=== PATIENT | male | born 1980 | race Caucasian/White ===

== ENCOUNTER 2020-10-06 15:10 | Emergency (ER) | payer OTHER ==
[2020-10-06] MEDS ORDERED: Ondansetron 4 MG/2 ML SDV IVPUSH ONE (15:15)
[2020-10-06] MEDS ORDERED: Sodium Chloride 0.9% 1,000 ML IV SCH (15:15)
[2020-10-06] MEDS ORDERED: Ketorolac 30 MG/ML SDV IVPUSH ONE (15:15)
--- NOTE | 2020-10-06 15:19 | EDM.PDOC ---
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 she reports that pt had a suicide attempt 2008, that he has gone to alc rehab in past but that was unable as it did not address his psych issues pt has dx of anxiety and depression states pt has not had alc since December that she is aware of pt states he lives with his and children and nephew states pt has difficulty handling stressful situations pt tells me that he "has 2 choices" but won't elaborate on those choices, denies being suicidal, states he is embarrassed, that his 2 choices are to drink or not to drink pt will not say why he was drinking today, says he does not know reports that he drinks alcohol - Related Data Allergies Allergy/AdvReac Type Severity Reaction Status Date / Time No Known Allergies Allergy Verified 10/06/20 15:54 Home Meds: Home Meds FLUoxetine HCl [Fluoxetine HCl] 40 mg PO BID 10/06/20 [History] busPIRone [Buspar] 7.5 mg PO DAILY 10/06/20 [History] ED ROS GENERAL - Review of Systems Review Of Systems: See Below Constitutional: Reports: No Symptoms HEENT: Reports: No Symptoms Respiratory: Reports: No Symptoms Cardiovascular: Reports: No Symptoms Endocrine: Reports: No Symptoms GI/Abdominal: Reports: No Symptoms : Reports: No Symptoms Musculoskeletal: Reports: No Symptoms Skin: Reports: No Symptoms Neurological: Reports: No Symptoms Psychiatric: Reports: Other (acute alc intox). Denies: Homicidal Ideation, Suicidal Ideation Hematologic/Lymphatic: Reports: No Symptoms Immunologic: Reports: No Symptoms ED EXAM, GENERAL - Physical Exam Exam: See Below Exam Limited By: No Limitations General Appearance: Alert, WD/WN, Other (small amount emesis on left label of his jacket, not holding his head erect) Ears: Normal External Exam, Hearing Grossly Normal Nose: Normal Inspection Throat/Mouth: Normal Inspection Head: Atraumatic Neck: Normal Inspection. No: Lymphadenopathy (R), Lymphadenopathy (L) Respiratory/Chest: No Respiratory Distress, Lungs Clear, Normal Breath Sounds, No Accessory Muscle Use, Chest Non-Tender Cardiovascular: Regular Rate, Rhythm, No Edema, No Gallop, No JVD, No Murmur, No Rub GI/Abdominal: Soft, Non-Tender, No Distention Back Exam: Normal Inspection, Full Range of Motion, NT Extremities: Normal Inspection, Normal Range of Motion, Non-Tender, No Pedal Edema Neurological: CN II-XII Intact, No Motor/Sensory Deficits Skin Exam: Warm Lymphatic: No Adenopathy Course - Vital Signs Last Recorded V/S: Last Vital Signs Temp 36.3 C 10/06/20 15:10 Pulse 88 10/06/20 15:10 Resp 20 10/06/20 15:10 BP 116/61 10/06/20 15:10 Pulse Ox 99 10/06/20 15:10 - Orders/Labs/Meds Orders: Active Orders 24 hr Category Date Time Status DRUG SCREEN, URINE ALERE [URCHEM] Stat Lab 10/06/20 15:15 Ordered UA W/MICROSCOPIC [URIN] Stat Lab 10/06/20 15:15 Ordered Sodium Chloride 0.9% [Normal Saline] 1,000 ml Med 10/06/20 15:15 Active IV ASDIRECTED Medication Orders Sodium Chloride (Normal Saline) 1,000 mls @ 999 mls/hr IV ASDIRECTED NILAM Last Admin: 10/06/20 15:21 Dose: 999 mls/hr Documented by: LESIA Labs: Laboratory Tests 10/06/20 10/06/20 10/06/20 Range/Units 15:18 15:18 15:18 WBC 8.2 (3.2-10.1) x10-3/uL RBC 5.22 (3.90-5.90) x10(6)uL Hgb 15.0 (12.9-17.7) g/dL Hct 44.5 (38.3-50.1) % MCV 85.4 (80.8-98.7) fL MCH 28.8 (27.0-33.3) pg MCHC 33.7 (28.7-35.3) g/dL RDW 14.5 (12.4-15.0) % Plt Count 366 (117-477) x10(3)uL MPV 7.9 (6.7-11.0) fL Neut % (Auto) 57.4 (40.3-71.8) % Lymph % (Auto) 32.8 (15.8-45.3) % [place] % (Auto) 8.2 (5.5-15.2) % Eos % (Auto) 0.7 (0.1-6.8) % Baso % (Auto) 0.9 (0.3-3.8) % Neut # (Auto) 4.7 (1.7-6.9) x10-3/uL Lymph # (Auto) 2.7 (0.5-4.5) x10-3/uL [place] # (Auto) 0.7 (0.0-1.2) x10-3/uL Eos # (Auto) 0.1 (0.0-0.6) x10-3/uL Baso # (Auto) 0.1 (0.0-0.3) x10-3/uL Sodium 142 (135-145) mmol/L Potassium 3.2 L (3.5-5.3) mmol/L Chloride 104 (100-110) mmol/L Carbon Dioxide 20 L (21-32) mmol/L BUN 14 (7-18) mg/dL Creatinine 1.2 (0.70-1.30) mg/dL Est Cr Clr Drug Dosing TNP Estimated GFR (MDRD) > 60 (>60) BUN/Creatinine Ratio 11.7 (9-20) Glucose 122 H (80-116) mg/dL Calcium 9.1 (8.6-10.2) mg/dL Total Bilirubin 1.2 (0.1-1.3) mg/dL AST 22 (5-25) IU/L ALT 33 (12-36) U/L Alkaline Phosphatase 79 (56-112) IU/L Total Protein 6.9 (6.0-8.0) g/dL Albumin 4.3 (3.5-5.2) g/dL Globulin 2.6 g/dL Albumin/Globulin Ratio 1.7 Ethyl Alcohol 0.21 H* (<0.03) % Meds: Medications Generic Name Dose Route Start Last Admin Trade Name Freq PRN Reason Stop Dose Admin Sodium Chloride 1,000 mls @ 999 mls/hr 10/06/20 15:15 10/06/20 15:21 Normal Saline IV 999 mls/hr ASDIRECTED NILAM Administration Discontinued Medications Generic Name Dose Route Start Last Admin Trade Name Sarbjit PRN Reason Stop Dose Admin Ketorolac Tromethamine 30 mg 10/06/20 15:15 10/06/20 15:22 Toradol IVPUSH 10/06/20 15:16 30 mg ONETIME ONE Administration Ondansetron HCl 4 mg 10/06/20 15:15 10/06/20 15:22 Zofran IVPUSH 10/06/20 15:16 4 mg ONETIME ONE Administration - Re-Assessments/Exams Free Text/Narrative Re-Assessment/Exam: 10/06/20 18:49 here, at bedside, says they live near [facility], that pt went to [place] in February when he had his last drinking binge, that he did not think he needed a counselor, did not want to meet with a counselor on telehealth he has worked as an instructor in automotive dept at [employer], pt reports to that he did not know why he was drinking today, that he is upset because he was inebriated at work and may lose his job, 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 as planned 10/06/20 19:07 Lissette called from [facility], I gave her background on pt, she said she would do an assessment 10/06/20 19:[address] pt signed out to Dr Barrera at change of shift Departure - Departure Time of Disposition: 19:11 Disposition: Still A Patient 30 Condition: Undetermined Clinical Impression: Acute alcohol intoxication, Work stress, Alcohol consumption binge drinking, Lack of insight - Discharge Information *PRESCRIPTION DRUG MONITORING PROGRAM REVIEWED*: Not Applicable *COPY OF PRESCRIPTION DRUG MONITORING REPORT IN PATIENT CAT: Not Applicable Sepsis Event Note (ED) - Focused Exam Vital Signs: Vital Signs Temp Pulse Resp BP Pulse Ox 10/06/20 15:10 36.3 C 88 20 116/61 99 - My Orders Last 24 Hours: My Active Orders 10/06/20 15:15 DRUG SCREEN, URINE ALERE [URCHEM] Stat UA W/MICROSCOPIC [URIN] Stat Sodium Chloride 0.9% [Normal Saline] 1,000 ml IV ASDIRECTED - Assessment/Plan Last 24 Hours: My Active Orders 10/06/20 15:15 DRUG SCREEN, URINE ALERE [URCHEM] Stat UA W/MICROSCOPIC [URIN] Stat Sodium Chloride 0.9% [Normal Saline] 1,000 ml IV ASDIRECTED
[2020-10-06 19:42] LABS: ACETAMINOPHEN < 2 ug/mL (<2)
== END 2020-10-06 21:20 | disposition still patient (30) ==
LOC: FB.ED 15:10
DX: F10.129 Alcohol abuse with intoxication, unspecified (principal); F50.81 Binge eating disorder; F41.9 Anxiety disorder, unspecified; F32.9 Major depressive disorder, single episode, unspecified; Z56.3 Stressful work schedule; Y90.0 Blood alcohol level of less than 20 mg/100 ml; Z79.899 Other long term (current) drug therapy
CPT/HCPCS: 36415; 80053; 80305; 80307; 81001; 84443; 85025; 96374; 96375; 99283; 99284; J1885; J2405; J7030